=== PATIENT | female | born 1995 | race Caucasian/White ===

== ENCOUNTER 2018-03-26 20:22 | Emergency (ER) | payer OTHER ==
[~2018-03-26] VITALS: Ht 180.3 cm; Wt 53.1 kg
[2018-03-26 20:22] VITALS: BP 110/74
== END 2018-03-26 22:01 | disposition home or self-care (01) ==
LOC: ER 20:25
DX: R20.2 Paresthesia of skin (principal)
CPT/HCPCS: 99281; A4606; Z7610; Z7502